=== PATIENT | male | born 1945 | race Caucasian/White ===

== ENCOUNTER 2023-05-25 09:51 | Outpatient (CLI) | payer MEDICARE, BC, SELFPAY ==
--- NOTE | 2023-05-25 10:15 | MR_ITS ---
[address] [address] Phone:?[phone] Fax:?[phone] Referring Physician Information: Aurelio Urbina M.D. [address] [place] [address] Phone:?[phone] Fax:?[phone] Patient:Rudi Zamora D.O.B:?1945 Sex:?Male Phone:?[phone] [facility] MRN:?[id number] Exam Date:?05/25/2023 EXAM: MRI of the LEFT SHOULDER, without contrast CLINICAL HISTORY: Left shoulder pain. Evaluate for rotator cuff tear. COMPARISONS: Plain radiographs 04/18/2023. TECHNICAL: MRI sequences of the left shoulder: Axials: PD, T2 Coronals: PD, STIR, T2 Sagittals: PD, T2?SEDATION: None CONTRAST: None FINDINGS: Bones: No fracture or suspicious bone marrow signal abnormality. Coracoacromial arch: Acromion: No os acromiale. Type I-II acromion. Acromiohumeral space: Marked narrowing. Acromioclavicular joint: Marked degenerative changes with marked inferior osteophytosis/hypertrophy. Coracoclavicular ligament: The coracoclavicular ligament is intact. Rotator cuff muscles/tendons: Supraspinatus and infraspinatus: There are complete full-thickness tears of the supraspinatus and infraspinatus tendon insertions with proximal/medial tendon retraction to the level of the glenoid and superior subluxation of the humeral head. No disproportionate atrophy of the supraspinatus or infraspinatus muscles in the setting of minimal diffuse muscular atrophy. Teres minor: The teres minor tendon and muscle are intact. Subscapularis: Moderate to marked tendinopathy. No disproportionate muscular atrophy. Labrum and glenohumeral joint: There is posterosuperior labral fraying. Moderate glenohumeral joint effusion. No discrete chondral defect is seen although grade 2-3 chondral thinning is suspected over much of the humeral head. No convincing evidence of capsular edema or thickening although evaluation is suboptimal because of lack of joint distention. Proximal biceps tendon, long head and short heads: There is medial dislocation of the proximal long head of the biceps tendon from the bicipital groove onto the lesser tuberosity. The short is intact. IMPRESSION: 1. Complete full-thickness tears of the supraspinatus and infraspinatus tendon insertions with proximal/medial tendon retraction to the level of the glenoid and superior subluxation of the humeral head. 2. Moderate to marked subscapularis tendinopathy. 3. No disproportionate rotator cuff muscular atrophy in the setting of minimal diffuse muscular atrophy. 4. Medial dislocation of the proximal long head the biceps tendon from the bicipital groove onto the lesser tuberosity. 5. Marked acromioclavicular joint osteoarthritis with marked inferior osteophytosis/hypertrophy. 6. No discrete chondral defect is seen although grade 2-3 chondral thinning is suspected over much of the humeral head. Posterosuperior labral fraying. 7. Moderate glenohumeral joint effusion. RCB Electronically signed on 05/25/2023 1:41:00 PM by Candido Valdes M.D.
== END 2023-05-25 09:52 | disposition home or self-care (01) ==
PROVIDERS: PCP Family Medicine; Visit Provider Orthopaedic Surgery
DX: M25.512 Pain in left shoulder (principal); M75.122 Complete rotator cuff tear or rupture of left shoulder, not specified as traumatic; M19.012 Primary osteoarthritis, left shoulder; M25.412 Effusion, left shoulder
CPT/HCPCS: 73221

== ENCOUNTER 2023-08-24 14:18 | Outpatient (RCR) | payer MEDICARE, BC, SELFPAY ==
--- NOTE | 2023-08-24 16:02 | OT.OPGNE2 ---
OT Outpatient General/Neuro Eval OT Outpatient General/Neuro Eval* Start: 08/24/23 15:22 Freq: Status: Active Protocol: Document 08/24/23 15:30 SMW (Rec: 08/24/23 15:50 SMW Laptop) E-signed By Radha Brothers OT OT Outpatient Evaluation Details Type Type Eval Complexity Low Insurance Information Insurance Information Insurance Information Medicare B Outpatient History/Precautions Current Condition Referring Provider Dr. Urbina Medical Diagnoses L reverse shoulder arthroplasty (08/29) Treatment Diagnoses L TSA Medical/Functional History Medical History Reviewed Yes Prior Level of Function/Mobility Patient lives with his in a rambler style home. Reports independence in all ADLs and IADLs. He is R handed. 1st joint replacement. PMX: Rotator cuff tear, osteoarthritis, and bicipital tendinitis of L shoulder. Precautions General Precautions TSA precautions Social History Type of Dwelling Rambler Home Number of Floors (Floors) 1 Number of Stairs to Enter (Stairs) 1 Lives With: Spouse Employment Status Retired Patient Subjective Subjective Patient Subjective Patient reports that he feels prepared for his surgery. Pain Assessment Pain Left Shoulder Pain Description Other Constant Cognitive Assessments Performed Oriented Patient oriented Person,Place,Time,Situation Balance Assessment Comments Balance Comments No AE use at baseline. ADL/IADL ADL Eating (Feeding) Ability Independent Grooming Ability Independent Oral Care Ability Independent Upper Body Dressing Ability Independent Lower Body Dressing Ability Independent Toileting Ability Independent Bathing Ability Independent Ambulation Ability Independent Assessment Assessment Assessment Tray is a 77 year old male who will be getting surgery for a left shoulder arthroplasty on 08/29/23. He was seen at the [facility] OT clinic for his pre-op visit. The patient lives in a rambler style home with his . She will be available to assist post-op.Today, the client was provided education on post-op precautions, therapeutic exercises, one handed dressing techniques, sleep positioning , and practice with donning/ doffing a sling. Patient and spouse asked appropriate questions during pre-op session. Occupational Therapy Treatment Plan - OP Potential Rehabilitation Potential Good Set Goals Goals Set with Patient Yes Goals Goals At the end of the OT session: 1. The client will verbalize understanding of post-op TSA precautions. goal met 2. The client will I demonstrate the ability to perform post-op exercises. goal met 3. The client will be educated on one handed ADL techniques, positioning, sling management and icing post surgery. goal met Treatment Plan Treatment Plan Self-Care/Home Management, Education Certification Certification Statement I Certify That: Therapy Services Provided, Therapy Plan Established, Therapy Plan Reviewed Certification Information Clinic ID # [id number] Initial Certification Date 08/24/23 Recertification Due Date 08/24/23 Provider Signature Shows Agreement With POC & Medical Necessity Physician Comment/Change Comment or Changes Physician NPI Number # Student Supervision Student Supervision Patient Treatment Provided by Student Yes with Supervision Student Documentation Reviewed Yes Student Signature Stacy Moran, OTS
== END 2023-12-22 23:59 | disposition home or self-care (01) ==
PROVIDERS: PCP Family Medicine; Visit Provider Orthopaedic Surgery
DX: M75.102 Unspecified rotator cuff tear or rupture of left shoulder, not specified as traumatic (principal); Z51.89 Encounter for other specified aftercare; M19.012 Primary osteoarthritis, left shoulder; M75.22 Bicipital tendinitis, left shoulder
CPT/HCPCS: 97110; 97165; 97535; X5282

== ENCOUNTER 2023-08-29 08:46 | Day surgery (SDC) | payer MEDICARE, BC, SELFPAY ==
[2023-08-29] VITALS (21 sets, daily range): BP systolic 114–183; BP diastolic 46–75; PULSE 60–93; RESP 14–18; TEMP 36–36.8; O2SAT 90–99; BMI 22.1
--- OUTSIDE RECORDS SUMMARY | 2023-08-29 08:49 | XMS_ITS | Continuity of Care Document ---
Author Name Unknown Address [address] [place] [address] Phone [phone] Organization [facility] Address [address] [place] [address] Care Team Providers Care Athletic Gear Custodian Name Role Phone EVANGELISTA VENTURA Primary Care Provider Assessment No assessment recorded. Plan of Treatment Reminders Order Date Submit Date Provider Last Modified By Organization Details Last Modified Time Details Appointments PSA 10 2023 10:00A M [facility] Not available Not available Not available ESTABLISH ED 10 2023 10:20A M Archie Mei MD Not available Not available Not available Lab urinalysi s, dipstick 2023 024 [email or web address] [facility], [address], [place], [address], 08/21/2023 11:20:19 PSA, serum or plasma 2023 024 [email or web address] [facility], [address], [place], [address], 08/21/2023 11:22:22 Referral None recorded. Procedures None recorded. Surgeries None recorded. Imaging None recorded. Medication Orders None recorded. Patient TargetsNo targets recorded. Patient Instructions Encounter Date Encounter Id Patient Instructions Last Modified By Organization Details Last Modified Time 08/21/2023 [id number] labs looking goo d today. will plan follow up in February for PSA and med refill. [email or web address] Not available 08/21/2023 11:35:27 Reason for Referral None Reported. Results Created Date Observation Date Name Description Value Unit Range Abnormal Flag LastModifiedBy Organization Detail LastModifiedTime 08/21/19 24 08/21/2023 PSA, serum or plasm a PSA 2.6ng/ mL 0-4.0 Not Available [facility] [address], [place], [address], 08/21/2023 11:21:43 08/21/19 24 08/21/2023 urina lysis , dipst ick Color-Status Yellow Not Available [facility] [address], [place], [address], 08/21/2023 11:19:35 08/21/19 24 08/21/2023 urina lysis , dipst ick Clarity-Stat us Clear Not Available [facility] [address], [place], [address], 08/21/2023 11:19:35 08/21/19 24 08/21/2023 urina lysis , dipst ick Sp [place]-Stat us >=1.03 0 Not Available [facility] [address], [place], [address], 08/21/2023 11:19:35 08/21/19 24 08/21/2023 urina lysis , dipst ick pH-Status 6.0 Not Available [facility] [address], [place], [address], 08/21/2023 11:19:35 08/21/19 24 08/21/2023 urina lysis , dipst ick Nitrates-Sta tus negati ve Not Available [facility] [address], [place], [address], 08/21/2023 11:19:35 08/21/19 24 08/21/2023 urina lysis , dipst ick Blood-Status Negati ve Not Available [facility] [address], [place], [address], 08/21/2023 11:19:35 08/21/19 24 08/21/2023 urina lysis , dipst ick Leuko-Status Negati ve Not Available [facility] [address], [place], [address], 08/21/2023 11:19:35 08/21/19 24 08/21/2023 urina lysis , dipst ick Specimen Type Voided Not Available [facility] [address], [place], [address], 08/21/2023 11:19:35 08/21/19 24 08/21/2023 urina lysis , dipst ick Performed by Willian Cesar RN Not Available [facility] [address], [place], [address], 08/21/2023 11:19:35 Result Notes None recorded. Problems Name Status Onset Date Resolution Date Notes Provider Name and Address Organization Details Recorded Time Zach hematuria Active 012 599.71 : GROSS HEMATURIA Not Available [facility] 12/26/2019 02:00:50 Kidney stone Active 012 592.0 : CALCULUS-KI DNEY Not Available [facility] 12/26/2019 02:00:50 Prostate specific antigen above reference range Active 022 Archie Mei MD [address] [place] [address],[address], [address], [facility] 03/10/2022 11:35:16 Lower urinary tract symptoms due to benign prostatic hypertrophy Active 023 Archie Mei MD [address] [place] [address],[address], [address], [facility] 03/03/2023 11:16:28 Problem Notes None recorded. Procedures Surgical History Date Name Laterality Status Provider Name and Address Organization Details Recorded Time 08/21/19 24 Urinalysis completed Archie Mei MD [address] [place] [address],[address], [address], [facility] 08/21/2023 11:19:24 03/03/20 23 Cystoscopy- male completed Archie Mei MD [address], [place], [address], [facility] 03/03/2023 11:16:05 01/20/20 23 Bladder [email or web address] 01/19/2023 09:36:48 03/10/20 22 Bladder Scan completed Archie Mei MD [address] [place] [address],[address], [place], [address], [facility] 03/10/2022 11:23:15 03/21/20 14 Cysto/uretero w/lithotripsy completed Not Available [facility] 12/19/2019 19:02:17 06/25/20 13 Cystouretero w/lithotripsy completed Not Available [facility] 12/19/2019 19:02:17 Hernia Repair completed Archie mauro MD [address] [place] [address],[address], [place], [address], [facility] 03/10/2022 11:22:51 Imaging Results None recorded. Procedure Notes None recorded. Medical Equipment None Reported. Allergies No known drug allergies Medications Name Sig Start Date Stop Date Status Note LastModified by Organization Details LastModified Time donepezil 10 mg tablet TAKE 2 TABLETS BY MOUTH AT BEDTIME active Not Available Not Available No t Available prednisone 20 mg tablet TAKE 2 TABLETS BY MOUTH ONCE DAILY WITH A MEAL FOR 5 DAYS 08/21 completed Not Available Not Available Not Available triamcinolo ne acetonide 0.1 % topical cream active Not Available Not Available Not Available tamsulosin 0.4 mg capsule TAKE 1 CAPSULE BY MOUTH ONCE DAILY IN THE EVENING active Not Available Not Available No t Available imiquimod 5 % topical cream packet APPLY THIN LAYER TO SCALP AND FACE 2 TIMES WEEKLY WEEKLY FOR 16 WEEKS 01/19 completed Not Available Not Available Not Available benzonatate 100 mg capsule 01/19 completed Not Available Not Available Not Available erythromyci n 5 mg/gram (0.5 %) eye ointment APPLY 1/4 INCH RIBBON TO OUTSIDE EDGE OF UPPER EYELID WHILE THE EYE IS CLOSED BEFORE BED EACH NIGHT FOR 1 MONTH 01/19 completed Not Available Not Available Not Available gabapentin 300 mg capsule active Not Available Not Available Not Available mupirocin 2 % topical ointment APPLY OINTMENT TOPICALLY TO AFFECTED AREA THREE TIMES DAILY FOR 5 DAYS active Not Available Not Available No t Available methylpredn isolone 4 mg tablets in a dose pack FOLLOW PACKAGE DIRECTION S 03/03 completed Not Available Not Available Not Available finasteride 5 mg tablet TAKE 1 TABLET BY MOUTH ONCE DAILY active Not Available Not Available No t Available rosuvastati n 20 mg tablet TAKE 1 TABLET BY MOUTH AT BEDTIME active Not Available Not Available No t Available memantine 5 mg tablet TAKE 2 TABLETS BY MOUTH ONCE DAILY active Not Available Not Available No t Available Multi Vitamin active Not Available Not Available Not Available aspirin 81 mg capsule Take 1 capsule every day by oral route. active Not Available Not Available No t Available Vitals Date Recorded Body height Provider Name an d Address Organization Details Last Updated DateTime 08/21/2023 170.18 cm Archie Mei MD [address] [place] [address], [address], [facility] 08/21/2023 11:15:57 Social History Question Answer Notes LastModified by Organizat ion Details LastModified Time Tobacco Smoking Status Former Smoker Archie Mei MD [address] [place] [address], [address], [facility] 08/21/2023 11:19:08 What Is Your Level Of Alcohol Consumption? Moderate [email or web address] Information not available 01/19/2023 How Many Times Per Week Do You Consume Alcohol? 5-7 Times Per Week [email or web address] Information not available 08/21/2023 What Is Your Level Of Caffeine Consumption? Occasional [email or web address] Information not available 03/10/2022 Are You Currently Employed? No [email or web address] Information not available 03/03/2023 When Did You Quit Smoking? 16+yearssincel astcigarette [email or web address] Information not available 08/21/2023 Recreational Drug Use No [email or web address] Information not available 03/03/2023 What Was The Date Of Your Most Recent Tobacco Screening? 08/21/2023 [email or web address] Information not available 08/21/2023 Have You Ever Been Counseled For Unhealthy Alcohol Use? No [email or web address] Information not available 01/19/2023 What Is Your Relationship Status? [email or web address] Information not available 03/03/2023 Do You Use Any Illicit Or Recreational Drugs? No [email or web address] Information not available 01/19/2023 Has Tobacco Cessation Counseling Been Provided? No [email or web address] Information not available 01/19/2023 Do You Or Have You Ever Used Any Other Forms Of Tobacco Or Nicotine? No [email or web address] Information not available 01/19/2023 Sex: Male Functional Status None recorded. Mental Status None recorded. Family History Relationship Description Onset Age of this Age Resolved Age Notes Father Family history of ca rdiac disorder Medical History Condition Response Sexually Transmitted Infection N Diabetes N Other N Bleeding Disorder N High Blood Pressure N Kidney Stones Y High Cholesterol N GERD/Acid Reflux N Heart Disease N Cancer N Lung Disease N Depression N Immunizations Vaccine Type Date Status Provider Name and Address Organization Details Recorded Time zoster recombinant 08/03/2020 completed November, [facility] 01/19/2023 09:20:34 zoster recombinant 11/14/2020 completed November, [facility] 01/19/2023 09:20:34 Influenza vaccine, quadrivalent, adjuvanted 03/23/2020 completed November, [facility] 01/19/2023 09:20:34 COVID-19, mRNA, LNP-S, PF, 30 mcg/0.3 mL dose [facility]:20:[facility] COVID-19, mRNA, LNP-S, PF, 30 mcg/0.3 mL dose 09/19/2020 completed November, [facility] 01/19/2023 09:20:34 COVID-19, mRNA, LNP-S, PF, 30 mcg/0.3 mL dose 05/20/2021 completed November, [facility] 01/19/2023 09:20:34 pneumococcal polysaccharide PPV23 11/30/2009 completed November, [facility] 01/19/2023 09:20:34 Tdap 01/24/2017 completed November, [facility] 01/19/2023 09:20:34 Pneumococcal conjugate PCV 13 04/28/2015 completed November, [facility] 01/19/2023 09:20:34 Influenza, seasonal, injectable 05/06/2008 completed Katelyn November null, [facility] 01/19/2023 09:20:34 Influenza, seasonal, injectable 06/11/2010 completed Katelyn November null, [facility] 01/19/2023 09:20:34 Hep B, adult 10/16/2013 completed Katelyn November null, [facility] 01/19/2023 09:20:34 Hep B, adult 03/28/2013 completed Katelyn November null, [facility] 01/19/2023 09:20:34 Hep B, adult 06/04/2013 completed Katelyn November null, [facility] 01/19/2023 09:20:34 Hep A, adult 04/27/2004 completed Katelyn November null, [facility] 01/19/2023 09:20:34 Past Encounters Encounter ID Performer Location Encounter Start Date Encounter Closed Date Diagnosis/Indication [id number] Archie Mei MD [facility] [address] [place] [address] 08/21/2023 10:53:40 08/28/2023 11:57:09 Prostate specific antigen above reference range Health Concerns Section Related Observation LastModified by Organization Detai ls LastModified Time None Recorded Concern Status LastModified by Organization Details LastModified Time None Recorded Payers Encounter Date Sequence Insurance Name Policy Number Policy Wick Covered Member ID Wick Member ID Guarantor Name 08/21/2023 1 [employer] [employer]UE - MEDICARE COST [id number] Tray Zamora [id number] Tray Zamora Notes Date Note Type Note Provider Name and Address Organization Details Recorded Time 08/21/2023 text/html HPI Notes: 6 mon th follow up, not seeing any blood in urine. taking finasteride and tamsulosin daily and voiding well PSA 2.6 and UA clear today. Archie Mei MD [address],[facility] [address], [place], [address], [facility] 08/21/2023 11:37:39
--- OUTSIDE RECORDS SUMMARY | 2023-08-29 08:49 | XMS_ITS | Data Portability ---
Author Name Unknown Address [address] [place] [address] Phone [phone] Organization [facility], [facility] Address 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, [place], [address], 08/21/2023 11:20:19 PSA, serum or plasma 2023 024 [email or web address] [facility], [address], [place], [address], 08/21/2023 11:22:22 urinalysi s, dipstick 2021 022 HAROLD [facility], [address], [address], [place], [address], 03/11/2022 16:14:32 Referral None recorded. Procedures bladder scan (PROC) 2022 023 [email or web address] [facility], [address], [address], [place], [address], 01/19/2023 09:37:02 bladder scan (PROC) 2021 022 [facility], [address], [address], [place], [address], 03/11/2022 16:15:36 Surgeries None recorded. Imaging None recorded. Medication Orders finasteri de 5 mg tablet 2022 023 [facility], [address] [place] [address], [address], 03/03/2023 11:17:01 tamsulosi n 0.4 mg capsule 2022 023 [facility] 1657, [address] [place] [address], [id number], 03/03/2023 11:20:39 Patient TargetsNo targets recorded. Patient Instructions Encounter Date Encounter Id Patient Instructions Last Modified By Organization Details Last Modified Time 08/21/2023 [id number] labs looking goo d today. will plan follow up in February for PSA and med refill. [email or web address] Not available 08/21/2023 11:35:27 03/03/2023 [id number] will start on finasteride, continue tamsulosin and plan rtc 6 months with PSA. [email or web address] Not available 03/03/2023 11:17:18 01/19/2023 [id number] will set up for CT urogram and get PSA done at home and then call with report and plan for cysto. [email or web address] Not available 01/19/2023 09:51:59 03/10/2022 [id number] will recheck PSA today and set up for MRI prostate. [email or web address] Not available 03/10/2022 11:39:33 Reason for Referral None Reported. Results Created Date Observation Date Name Description Value Unit Range Abnormal Flag LastModifiedBy Organization Detail LastModifiedTime 03/10/20 22 03/10/2022 bladd er scan (PROC ) Volume (in mL) 0 Not Available [facility] [address], [place], [address], 03/10/2022 11:38:11 03/11/20 22 03/11/2022 urina lysis , dipst ick pH-Status 6.0 Not Available [address], [place], [address], 03/10/2022 11:23:19 01/20/20 23 01/19/2023 bladd er scan (PROC ) Volume (in mL) 1 Not Available [address], [place], [address], 01/19/2023 09:26:03 08/21/19 24 08/21/2023 PSA, serum or plasm a PSA 2.6ng/ mL 0-4.0 Not Available [facility] [facility] [address], [place], [address], 08/21/2023 11:21:43 08/21/19 24 08/21/2023 urina lysis , dipst ick Color-Status Yellow Not Available [facility] [address], [place], [address], 08/21/2023 11:19:35 08/21/19 24 08/21/2023 urina lysis , dipst ick Clarity-Stat us Clear Not Available [facility] [address], [place], [address], 08/21/2023 11:19:35 08/21/19 24 08/21/2023 urina lysis , dipst ick Sp [place]-Stat us >=1.03 0 Not Available [facility] [facility] [address], [place], [address], 08/21/2023 11:19:35 08/21/19 24 08/21/2023 urina lysis , dipst ick pH-Status 6.0 Not Available [facility] [address], [place], [address], 08/21/2023 11:19:35 08/21/19 24 08/21/2023 urina lysis , dipst ick Nitrates-Sta tus negati ve Not Available [facility] [address], [place], [address], 08/21/2023 11:19:35 08/21/19 24 08/21/2023 urina lysis , dipst ick Blood-Status Negati ve Not Available [facility] [address], [place], [address], 08/21/2023 11:19:35 08/21/19 24 08/21/2023 urina lysis , dipst ick Leuko-Status Negati ve Not Available [facility] [address], [place], [address], 08/21/2023 11:19:35 08/21/19 24 08/21/2023 urina lysis , dipst ick Specimen Type Voided Not Available [facility] [address], [place], [address], 08/21/2023 11:19:35 08/21/19 24 08/21/2023 urina lysis , dipst ick Performed by Willian Cesar RN Not Available [facility] [address], [place], [address], 08/21/2023 11:19:35 03/10/20 22 03/10/2022 bladd er scan (PROC ) No observ ation record ed. BARCODE Not Available 03/10/2022 12:20:49 04/11/20 22 04/08/2022 MRI, prost ate, w/wo contr ast No observ ation record ed. [email or web address] [facility] [address] [facility] [place], [address], 03/09/2023 12:43:02 01/31/20 23 01/30/2023 CT, urogr am No observ ation record ed. [facility] (Radiology) [address] [place], [address], 02/02/2023 14:04:12 02/23/20 23 01/30/2023 CT, urogr am No observ ation record ed. [address] (Radiology) [address] [place], [address], 03/09/2023 12:42:40 Result Notes None recorded. Problems Name Status Onset Date Resolution Date Notes Provider Name and Address Organization Details Recorded Time Zach hematuria Active 012 599.71 : GROSS HEMATURIA Not Available [facility] 12/26/2019 02:00:50 Kidney stone Active 012 592.0 : CALCULUS-KI DNEY Not Available [facility] 12/26/2019 02:00:50 Prostate specific antigen above reference range Active 022 Archie Mei MD [address] [place] [address],[address], [address], [facility] 03/10/2022 11:35:16 Lower urinary tract symptoms due to benign prostatic hypertrophy Active 023 Archie Mei MD [address] [place] [address],[address], [address], [facility] 03/03/2023 11:16:28 Problem Notes None recorded. Procedures Surgical History Date Name Laterality Status Provider Name and Address Organization Details Recorded Time 08/21/19 24 Urinalysis completed Archie Mei MD [address] [place] [address],[address], [address], [facility] 08/21/2023 11:19:24 03/03/20 23 Cystoscopy- male completed Archie Mei MD [address] [place] [address],[address], [place], [address], [facility] 03/03/2023 11:16:05 01/20/20 23 Bladder Scan completed Katelyn Nubia briceño [facility] 01/19/2023 09:36:48 03/10/20 22 Bladder Scan completed Archie Mei MD [address], [place], [address], [facility] 03/10/2022 11:23:15 03/21/20 14 Cysto/uretero w/lithotripsy completed Not Available [facility] 12/19/2019 19:02:17 06/25/20 13 Cystouretero w/lithotripsy completed Not Available [facility] 12/19/2019 19:02:17 Hernia Repair completed Archie mauro MD [address], [place], [address], [facility] 03/10/2022 11:22:51 Imaging Results Imaging Date Name Status LastModified by Organiz ation Details LastModified Time 03/10/2022 bladder scan (PROC) completed [facility] Information not available 03/10/2022 12:20:49 04/08/2022 MRI, prostate, w/wo contrast completed [address] [facility] [place], [address], 03/09/2023 12:43:02 01/30/2023 CT, urogram completed [facility] (Radiology) [address] [place], [address], 02/02/2023 14:04:12 01/30/2023 CT, urogram completed [address] (Radiology) [address] [place], [address], 03/09/2023 12:42:40 Procedure Notes None recorded. Medical Equipment None [...] t Available Vitals Date Recorded Body height Body mass index (BMI) Body weight Provider Name and Address Organization Details Last Updated DateTime 03/10/2022 170.18 cm 20.4 kg/m2 69546.01 g Archie Mei MD [address], [place], [address], [place] [facility] 03/10/2022 11:20:00 Date Recorded Body height Body mass index (BMI) Body weight Provider Name and Address Organization Details Last Updated DateTime 01/19/2023 170.18 cm 20.4 kg/m2 10447.01 g Katelyn briceño [place] [facility] 01/19/2023 09:20:27 Date Recorded Body height Body mass index (BMI) Body weight Provider Name and Address Organization Details Last Updated DateTime 03/03/2023 170.18 cm 20.4 kg/m2 42355.01 g Toma Tian briceño [facility] 03/03/2023 10:45:24 Date Recorded Body height Provider Name an d Address Organization Details Last Updated DateTime 08/21/2023 170.18 cm Archie Mei MD [address] [place] [address], [address] 08/21/2023 11:15:57 Social History Question Answer Notes LastModified by Organizat ion Details LastModified Time Tobacco Smoking Status Former Smoker Archie Mei MD [address] [place] [address], [address], [facility] 08/21/2023 11:19:08 What Is Your Level Of Alcohol Consumption? Moderate [email or web address] Information not available 01/19/2023 How Many Times Per Week Do You Consume Alcohol? 5-7 Times Per Week [email or web address] Information not available 08/21/2023 What Is Your Level Of Caffeine Consumption? Occasional [email or web address] Information not available 03/10/2022 Are You Currently Employed? No [email or web address] Information not available 03/03/2023 When Did You Quit Smoking? 16+yearssincel astcigarette [email or web address] Information not available 08/21/2023 Recreational Drug Use No [email or web address] Information not available 03/03/2023 What Was The Date Of Your Most Recent Tobacco Screening? 08/21/2023 [email or web address] Information not available 08/21/2023 Have You Ever Been Counseled For Unhealthy Alcohol Use? No [email or web address] Information not available 01/19/2023 What Is Your Relationship Status? [email or web address] Information not available 03/03/2023 Do You Use Any Illicit Or Recreational Drugs? No [email or web address] Information not available 01/19/2023 Has Tobacco Cessation Counseling Been Provided? No [email or web address] Information not available 01/19/2023 Do You Or Have You Ever Used Any Other Forms Of Tobacco Or Nicotine? No [email or web address] Information not available 01/19/2023 Sex: Male Functional Status None recorded. Mental Status None recorded. Family History Relationship Description Onset Age of this Age Resolved Age Notes Father Family history of ca rdiac disorder Medical History Condition Response Diabetes N Sexually Transmitted Infection N Other N Bleeding Disorder N High Blood Pressure N Kidney Stones Y High Cholesterol N GERD/Acid Reflux N Heart Disease N Cancer N Lung Disease N Depression N Immunizations Vaccine Type Date Status Provider Name and Address Organization Details Recorded Time zoster recombinant 08/03/2020 completed November null, [facility] 01/19/2023 09:20:34 zoster recombinant 11/14/2020 completed November null, [facility] 01/19/2023 09:20:34 Influenza vaccine, quadrivalent, adjuvanted 03/23/2020 completed November null, [facility] 01/19/2023 09:20:34 COVID-19, mRNA, LNP-S, PF, 30 mcg/0.3 mL dose 08/29/2020 completed November null, [facility] 01/19/2023 09:20:34 COVID-19, mRNA, LNP-S, PF, 30 mcg/0.3 mL dose 09/19/2020 completed November null, [facility] 01/19/2023 09:20:34 COVID-19, mRNA, LNP-S, PF, 30 mcg/0.3 mL dose 05/20/2021 completed November null, [facility] 01/19/2023 09:20:34 pneumococcal polysaccharide PPV23 11/30/2009 completed November null, [facility] 01/19/2023 09:20:34 Tdap 01/24/2017 completed November null, [facility] 01/19/2023 09:20:34 Pneumococcal conjugate PCV 13 04/28/2015 completed November null, [facility] 01/19/2023 09:20:34 Influenza, seasonal, injectable 05/06/2008 completed November null, [facility] 01/19/2023 09:20:34 Influenza, seasonal, injectable 06/11/2010 completed November null, [facility] 01/19/2023 09:20:34 Hep B, adult 10/16/2013 completed November null, [facility] 01/19/2023 09:20:34 Hep B, adult 03/28/2013 completed Katelyn November keyanna, [facility] 01/19/2023 09:20:34 Hep B, adult 06/04/2013 completed Katelyn November keyanna, [facility] 01/19/2023 09:20:34 Hep A, adult 04/27/2004 completed Katelyn November keyanna, [facility] 01/19/2023 09:20:34 Past Encounters Encounter ID Performer Location Encounter Start Date Encounter Closed Date Diagnosis/Indication [id number] Archie Mei MD _[facility] [address] [place] [address] 03/10/2022 10:47:33 03/15/2022 16:31:05 Prostate specific antigen above reference range [id number] Archie Mei MD _[facility] [address] [place] [address] 01/19/2023 09:06:06 01/26/2023 09:16:39 Prostate specific antigen above reference range Zach hematuria [id number] Archie Mei MD [facility] [address] [place] [address] 03/03/2023 10:26:53 03/10/2023 14:24:57 Prostate specific antigen above reference range Lower urinary tract symptoms due to benign prostatic hypertrophy Zach hematuria [id number] Archie Mei MD [facility] [address] [place] [address] 08/21/2023 10:53:40 08/28/2023 11:57:09 Prostate specific antigen above reference range Health Concerns Section Related Observation LastModified by Organization Detai ls LastModified Time None Recorded Concern Status LastModified by Organization Details LastModified Time None Recorded Advance Directives Directive None Recorded Payers Encounter Date Sequence Insurance Name Policy Number Policy Wick Covered Member ID Wick Member ID Guarantor Name 08/21/2023 1 [place] [id number] Tray Reggie Cake [id number] Tray I Cake 03/03/2023 1 [place] [id number] Tray I Cake [id number] Tray I Cake 01/19/2023 1 [place] [facility] [employer] [facility] [id number] Tray I Cake [id number] Tray I Cake 01/19/2023 1 [place] [id number] Tray Paredes Cake [id number] Tray Reggie Cake 03/10/2022 1 [place] [facility] [employer] [facility] [id number] Tray I Cake [id number] Tray I Cake 03/10/2022 1 [place] [id number] Tray I Cake [id number] Tray Paredes Cake Notes Date Note Type Note Provider Name and Address Organization Details Recorded Time 03/10/2022 text/html HPI Notes: sent for eval of elevated PSA. has frequency both day and night nocturia 2-3x , many times during day, stream slow. taking tamsulosin 1/day started in October and not much change after that. PSA been rising over the last decade or so, was 2.96 in 2020 and up to 4.27 in October this year. no heme/dysuria. family hx neg for CaP. notes weight loss of about 15# unintentionally, maybe decreased appetite due to donezepil. UA clear and PVR 0ml today. Archie Mei MD [address] [place] [address],[address], [address], [facility] 03/10/2022 11:59:26 01/19/2023 text/html HPI Notes: seein g for follow up elevated PSA and also had episode of gross hematuria one time about a month ago. unable to give UA today PVR scan 1ml today. had prostate MRI done after last visit and that looked OK Archie Mei MD [address] [place] [address],[address], [place], [address], [facility] 01/19/2023 09:55:01 03/03/2023 text/html HPI Notes: here for cysto today for gross hematuria, cT was OK. Archie Mei MD [address] [place] [address],[address], [place], [address], [facility] 03/03/2023 11:20:46 08/21/2023 text/html HPI Notes: 6 mon th follow up, not seeing any blood in urine. taking finasteride and tamsulosin daily and voiding well PSA 2.6 and UA clear today. Archie Mei MD [address], [place], [address], [facility] 08/21/2023 11:37:39
--- OUTSIDE RECORDS SUMMARY | 2023-08-29 08:49 | XMS_ITS | Clinical Summary ---
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 0 05/31/2004 Active MULTIVITAMIN ORAL TAB once a day ? 0 05/31/2004 Active ACCU-CHEK MULTICLIX LANCETIndications:Ty pe II or unspecified type diabetes mellitus without mention of complication, not stated as uncontrolled use as directed 102 0 10/06/2008 Active flaxseed oil 1,000 mg Cap Take 1 capsule by mouth 3 times daily. 0 10/20/2011 Active blood sugar diagnostic (ACCU-CHEK ALLEY) stripIndications:Typ e II or unspecified type diabetes mellitus without mention of complication, not stated as uncontrolled test 3 times per week at varying times 100 Each 12 09/13/2012 Active aspirin (ECOTRIN) 81 mg enteric coated tablet Take 1 tablet by mouth once daily with a meal. 0 05/02/2019 Active ibuprofen (ADVIL; MOTRIN) 800 mg tabletIndications:Ro utine general medical examination at a health care facility Take 1 tablet by mouth 3 times daily with meals. As needed. 90 tablet 0 02/12/2020 Active donepeziL (ARICEPT) 10 mg tabletIndications:Mi ld dementia (HC) Take 1 tablet by mouth at bedtime. 30 tablet 12 05/04/2020 Active cholecalciferol, Vitamin D3, 2,000 unit tablet Take 50 mcg by mouth. 0 Active donepeziL (ARICEPT) 10 mg tabletIndications:Mo derate dementia without behavioral disturbance (HC) Take 2 Tablets (20 mg) by mouth at bedtime. 180 Tablet 3 10/12/2021 Active rosuvastatin (Crestor) 20 mg tabletIndications:Mi xed hyperlipidemia Take 1 Tablet (20 mg) by mouth at bedtime. 90 Tablet 3 08/19/2022 Active donepeziL (ARICEPT) 10 mg tabletIndications:Mo derate dementia without behavioral disturbance (HC) Take 2 Tablets (20 mg) by mouth at bedtime. 180 Tablet 3 12/26/2022 Active triamcinolone (ARISTOCORT; KENALOG) 0.1 % creamIndications:Chr onic eczema Apply topically to affected area(s) three times daily. 453.6 g 2 01/30/2023 Active tamsulosin (FLOMAX) 0.4 mg capsuleIndications:B PH with urinary obstruction Take 2 Capsules (0.8 mg) by mouth once daily after a meal. 180 Capsule 2 04/19/2023 Active memantine (Namenda) 5 mg tabletIndications:De mentia, unspecified dementia severity, unspecified dementia type, unspecified whether behavioral, psychotic, or mood disturbance or anxiety (HC) Take 2 Tablets (10 mg) by mouth once daily. 180 Tablet 2 04/11/2023 01/06/2024 Active lidocaine 5 % topical patchIndications:Chr onic left shoulder pain Apply to intact skin to cover most painful area for max 12hr per 24hr period. 30 Patch 0 04/18/2023 Active gabapentin (NEURONTIN) 300 mg capsuleIndications:A cute pain of left shoulder Take 1 Capsule (300 mg) by mouth at bedtime. 90 Capsule 0 07/12/2023 Active finasteride (PROSCAR) 5 mg tablet Take 5 mg by mouth once daily. 0 05/22/2023 Active Active Problems Problem Noted Date Diagnosed Date Sensorineural hearing loss, bilateral 11/06/2009 Diabetes mellitus type II 02/16/2009 Overview: a system change updated this record. This will not affect patient care or billing. This comment can be deleted. Aortic valve disorders Other ill-defined and unknow n causes of morbidity and mortality Personal history of unspecified digestive diseas e Family history of ischemic heart disease Other and unspecified hyperlipidemia Kidney stone Encounters Date Type Department Care Team Description 08/21/[address] [place] [address] Basim Adkins MD Form 08/15/2023 Orders Only [facility] [address] [place] [address] Basim Adkins MD 1 scan: (1-Ord) 08/14/2023 08/14/2023 12:20 PM FOOD MIXER Preop Visit [facility] [address] [place] [address] Basmi Adkins MD Pre-Op Exam (Surgery on 08/29/23 Dr. Urbina Left shoulder ) 08/14/2023 Travel from Last 3 Months Immunizations Name Administration Dates Next Due Hepatitis A (Adult) 06/11/2007,04/27/2004 Hepatitis B (Adult) 10/16/2013,06/04/2013,2012 Influenza, IIV3 (Age >=3 years) 06/11/2010,05/06,06/11/2007 Influenza, Inactivated AIIV4 (Age 65+ Years) Preserv Free 03/23/2020 Pneumococcal Poly,23-Valent (Pneumovax) 12/01/19 10 Pneumococcal conj 13-Valent (Prevnar 13) 015 Td, Preservative Free (age >= 7 Years) 7 Tdap 01/24/2017 Typhoid (injectable) 06/11/2007 Zoster (Shingrix-RZV, recombinant) 11/14/2020, Family History Medical History Relation Name Comments Cancer Brother brother Heart Disease Father MA age 64 Cancer Maternal Grandmother skin ca ncer Cancer-breast Mother Relation Name Status Comments Brother Father Maternal Grandmother Mother Social History Tobacco Use Types Packs/Day Years Used Date Smoking Tobacco: Former Cigarettes 1 8 0 07/10/1961 - 07/10/1969 Smokeless Tobacco: Never Tobacco Cessation:Counseling Given: Yes Comments:Quit smokin Alcohol Use Standard Drinks/Week Comments Yes 5.8 (1 standard drink = 0.6 oz p ure alcohol) 12/19/11, occasional PHQ-2 Answer Date Recorded PHQ-2 TOTAL SCORE 0 10/12/2021 Social Connections Answer Date Recorded Frequency of Communication with Friends and Fami ly Not on file 01/07/2023 Financial Resource Strain Answer Date R ecorded Difficulty of Paying Living Expenses 3 01/03/2022 Difficulty of Paying Living Expenses Not on file 01/03/2022 Food Insecurity Answer Date Recorded Worried About Running Out of Food in the Last Ye ar 1 01/03/2022 Transportation Needs Answer Date Record ed Lack of Transportation (Medical) 1 01/03/2022 Housing Stability Answer Date Recorded Unable to Pay for Housing in the Last Year 1 01/03/2022 Sex and Gender Information Value Date Recorded Sex Assigned at Not on file Gender Identity Not on file Sexual Orientation Not on file Obstetrics History Last Filed Vital Signs Vital Sign Reading Time Taken Comments Blood Pressure 140/60 08/14/2023 12:55 PM FOOD MIXER Pulse 59 08/14/2023 12:54 PM FOOD MIXER Temperature 36.4 ??C (97.5 ??F) 08/14/2023 12:[address] Respiratory Rate 16 08/14/2023 12:54 PM FOOD MIXER Oxygen Saturation 98% 08/14/2023 12:54 PM FOOD MIXER Inhaled Oxygen Concentration - - Weight 62.1 kg (137 lb) 08/14/2023 12:54 PM FOOD MIXER Height 167.6 cm (5' 6) 08/14/2023 12:54 PM FOOD MIXER Body Mass Index 22.11 08/14/2023 12:54 PM FOOD MIXER Plan of Treatment Upcoming Encounters Date Type Department Care Team (Late st Contact Info) Description 09/06/2023 3:30 PM FOOD MIXER Office Visit [facility] [address] [place] [address] Deacon Mast MD [address] [place] [address] 11/01/2023 3:40 PM CDT Office Visit [facility] [place] [facility] [address] [place] [address] Demian Marie MD [address] [place] [address] Health Maintenance Due Date Last Done Comments Hepatitis C screening for ag e 18-79 1963 Depression screening for age 12+ 10/12/2022 10/12/2021, 03/23/2020, 10/18/2018, Additional history exists Medicare Wellness for age 65+ 10/13/2022, 03/23/2020, 10/18/2018, Additional history exists COVID-19 vaccine series ( season) 2023 05/20/2021, 09/19/2020, 08/29/2020 Influenza for age 65+ 03/10/2023 03/23/2020 , 06/11/2010, 05/06/2008, Additional history exists BMI (ht and wt on same day) for age 18+ 08/14/2024 08/14/2023, 05/18/2023, 01/30/2023, Additional history exists Tetanus booster 01/24/2027 01/24/2017, 06/11/2007 Pneumococcal series for age 65+ Completed 5, 11/30/2009 Tdap Completed 01/24/2017 Zoster (shingles) series for age 50+ Completed 11/14/2020, 08/03/2020 Goals Goal Patient Goal Type Associated Problems Recent Progress Patient-Stated? Author BLOOD PRESSURE-MAINTA INS BP LESS THAN 130/80 Blood Pressure No Jc Delaney MD BLOOD PRESSURE - MAINTAINS BP less than 140/90 Blood Pressure No Jc Delaney MD Medical Devices Implanted Type Area Attending Urologist Device Identifier Shelf Expiration Date Model / Serial / Lot Stent Prcflx [id number] Hydpls - [id number] Implanted:Qty: 1 on 06/25/2013 by Ulisses lElison MD at [facility] Left: Ureter [facility] 04/08/2016 [id number] / / [id number] Stent Prcflx [id number] Hydpls - [id number] Implanted:Qty: 1 on 03/21/2014 by David Padron MD at [facility] Left: Ureter [facility] [id number]# / / [id number] Procedures Procedure Name Priority Date/Time Associated Diagnosis Comments EKG 12 LEAD Routine 08/14/2023 12:00 AM FOOD MIXER Preop general physical exam from Last 3 Months Results * EKG 12 LEAD (08/14/2023 12:00 AM FOOD MIXER) Basim Adkins MD EKG ORD from Last 3 Months Advance Directives Documents on File Type Date Recorded Patient 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
[2023-08-29] MEDS: OXYCODONE (CR) 10 MG TAB.ER.12H PO (09:20)
[2023-08-29] MEDS: ACETAMINOPHEN 500 MG TABLET 1000 MG PO ×3 (09:20→23:23)
[2023-08-29] MEDS: CELECOXIB 200 MG CAPSULE PO (09:20)
[2023-08-29] MEDS: LACTATED RINGERS 1000 ML 1,000 ML 100 ML IV ×2 (09:30→12:37)
[2023-08-29] MEDS: SODIUM CHLORIDE 0.9 % (FLUSH) 10 ML SYRINGE IVF (09:30)
[2023-08-29] MEDS: MIDAZOLAM HCL 1 MG/ML inj IVP (10:07)
[2023-08-29] MEDS: fentaNYL 100 MCG/2 ML inj IVP (10:07)
--- NOTE | 2023-08-29 10:31 | SUR.PREOP ---
TIME?OUT:?1007 PT/RN/MDA?VERIFICATION?OF?SURGICAL?SITE,?PROCEDURE,?AND?CONSENT OBTAINED?PRIOR?TO?INVASIVE?PROCEDURE.
[2023-08-29] MEDS: CEFAZOLIN 2 GM INJ IVP (10:35)
[2023-08-29] MEDS: TRANEXAMIC ACID 100 MG/ML INJ 1000 MG IV (10:40)
--- NOTE | 2023-08-29 10:53 | W.PM.NB ---
Nerve Block Nerve Block Time Seen by Provider: 10:11 Date Seen: 08/29/23 Type of block requested by surgeon for post-operative analgesia: supraclavicular Side: left Time out performed: Yes Verification of patient name: Yes Verification of date of : Yes Site marking: site marked Name of person performing procedure: Ramin Continuous monitoring Was continuous monitoring of O2 sat, B/P, monitoring tech, recorded every 15 minutes?: Yes Procedure Checklist: sterile prep, needles and gloves Ultrasound guided. Images saved: Yes Medications given in 5ml increments after negative aspiration: Ropivicaine %: 0.5 mL: 20 Needle gauge: 22 Decadron (mg): 10 Precedex (mcg): 25 Patient tolerated procedure well: Yes Block Charges Block Charge (with Pro Fee): Brachial Plexus Use of Ultrasound Machine for Block: Yes- US Guidance/pain block
--- NOTE | 2023-08-29 10:53 | W.ANESCHARGE ---
Anesthesia Charges Start Date/Time Anesthesia Start Date: 08/29/23 Anesthesia Start Time: 10:22 Stop Date/Time Anesthesia Stop Date: 08/29/23 Anesthesia Stop Time: 12:57 Summary Extremes of Age - Over 70 or under 1: MDA
--- NOTE | 2023-08-29 10:55 | SUR.OPER ---
PATIENT QUESTIONS ANSWERED SATISFACTORILY PREOPERATIVELY. PATIENT BROUGHT TO OR #2 PER CART FOLLOWING THE BLOCK. Patient positioned supine on OR #2 bed for the intubation.? Perioperative team wrapped the right arm in a neutral position on the pt. abdomen with the drawsheet. Left arm elevated on an IV pole in a padded strap. Final approval of positioning by surgeon.
--- NOTE | 2023-08-29 12:22 | XR_ITS ---
Final Report Patient: JEFFREY LAU Facility:?[facility] Patient ID:?[id number] Site Patient ID:?[id number]. Site :?[birth year]/31/1993 Study:?XRay Extremity Left 2V SHOULDER-08/29/2023 1:09:59 PM Ordering Physician:?DR. HUYNH Final Report: INDICATION: Post operative shoulder arthroplasty TECHNIQUE: Shoulder radiograph 2 views left COMPARISON: None FINDINGS: Bone: No acute fractures or aggressive bone lesions are identified. Joint: A reverse shoulder arthroplasty is noted. The acromioclavicular joint is unremarkable. Soft tissue: Soft tissue gas is present, consistent with recent surgery. The visualized hemithorax and soft tissues are unremarkable in appearance. No radiopaque foreign bodies are seen. IMPRESSION: 1. There is an unremarkable postoperative appearance of the shoulder arthroplasty. Dictated by: Davide Estrada MD @ 08/30/2023 07:04:56 (Electronic Signature)
--- NOTE | 2023-08-29 12:30 | P.ORPRC_ITS ---
Procedure Note Date of procedure: 08/29/23 Procedure: PREOPERATIVE DIAGNOSIS: Left shoulder rotator cuff tear arthropathy POSTOPERATIVE DIAGNOSIS: Left shoulder rotator cuff tear arthropathy NAME OF OPERATION: Left upper extremity reverse shoulder arthroplasty SURGEON: Aurelio Urbina MD DYE PENETRANT TESTING TECHNICIAN: Krysten Morelos PA-C, MONIQUE Espinoza ANESTHESIA: General endotracheal ESTIMATED BLOOD LOSS: 200 mL COMPLICATIONS: None SPECIMENS: None DRAINS: None PREOPERATIVE ANTIBIOTICS: Ancef 1 grams IMPLANTS: 1. Tornier 29 mm x 30mm standard baseplate 2. 36mm standard glenosphere 3. 5B humeral stem 4. High eccentric +0 humeral tray 5. 36mm +6 polyethylene INDICATIONS: The patient is a 77-year-old with a longstanding history of severe, unrelenting left shoulder pain secondary to rotator cuff tear arthropathy. Despite appropriate nonoperative management, including activity modification, anti-inflammatories, [id number] pain medication, physical therapy, and injections they continue to have pain and disability. Operative intervention was offered. The risks, benefits and expected outcomes were discussed in detail. These included but were not limited to: Infection, bleeding, injury to blood vessel or nerve, venous thromboembolism. All questions were answered to their satisfaction. Use of an paperhanger assistant was necessary throughout the case for patient positioning and safety, soft tissue retraction, and closure. PROCEDURE: General anesthesia was administered. The patient was placed in the lazy beach chair position on the operating room table. The left upper extremity was prepped and draped in the usual sterile fashion. A standard deltopectoral incision was made. Subcutaneous dissection was taken with electrocautery to the deltopectoral interval. The cephalic vein was mobilized, lateral branches were cauterized. The vein was taken medially with the pectoralis. We bluntly entered the deltopectoral interval. We freed up the deltoid. The upper 1/3 of the insertion of the pectoralis was divided with cautery. The static retractor was placed. The clavipectoral fascia and CA ligament were divided. The circumflex vessels were controlled with electrocautery. The biceps was dissected out of the bicipital groove, was tagged with a #2 FiberWire suture and divided proximally. Two fiberWire sutures were placed in the subscapularis. The subscap was subperiosteally elevated off of the lesser tuberosity. The humeral head was delivered into the wound. The intramedullary humeral cutting guide was placed. We made the cut at the anatomic neck, in 30? of retroversion. Humeral sounds were used to assess the diameter of the canal. The broach was placed and had good rotational stability. The calcar reamer was used and the protective base plate cover was placed. Attention was then turned to the glenoid. Hohmann retractors were placed posteriorly. The labrum and biceps stump were sharply debrided. The origin of the inferior glenohumeral ligaments were subperiosteally released off of the glenoid. The drill guide was placed. The guide pin was placed in 0? of cephalic tilt. The reamer was used to bleeding bone. The central drill was used x2. The tap was used. The standard base plate was placed. This had excellent purchase. Locking screws were placed. The glenosphere was placed, the set screw was tightened. Attention then returned to the humerus. We placed a high eccentric standard base plate and standard poly. We reduced the shoulder and took it through a range of motion. It was found to be stable with appropriate soft tissue tension. Trial humeral components were removed. The biceps was tenodesed in the bicipital groove with drill holes and our previously placed FiberWire suture. We placed #2 FiberWire sutures in the lesser tuberosity for subsequent subscap repair. We assembled the humeral component on the back table. We placed it in the center of our subscapularis repair sutures and tapped it down to our humeral cut. This had excellent purchase. The shoulder was reduced and again was found to be stable with appropriate soft tissue tension. We did a 3 min dilute Betadine solution soak. We irrigated the wound with 3 L of normal saline via pulse lavage. We repaired the subscapularis to the lesser tuberosity with our previously placed FiberWire sutures. The deltopectoral interval was loosely reapproximated with an 0 Vicryl in an interrupted [id number] fashion. Subcutaneous tissues were closed with the 2-0 Vicryl and a running 3-0 Monocryl suture. The skin was sealed with glue. A dry dressing and sling were applied. Sponge and needle counts were correct x2. The patient tolerated the procedure well, there were no apparent complications. They were awakened and extubated in the operating room, taken to the postanesthesia care unit in satisfactory condition. PLAN: The patient will be mobilized with physical therapy. The sling will be used for 6 weeks postoperatively. Active range of motion in forward flexion and abduction as tolerates. No external rotation greater than 0? for 6 weeks postoperatively. They will be discharged to home once medically appropriate.
--- NOTE | 2023-08-29 12:56 | P.ANES_ITS ---
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
--- NOTE | 2023-08-29 14:54 | PM.IMCN1 ---
Date of Consult Patient: Serina Patient Consult date: 08/29/23 Requesting Physician: Orthopedics Primary Care Provider: Basim Adkins MD Consult Narrative Reason for consult: dementia, EtOH use Narrative: Tray Zamora is a 77 year old male with h/o dementia, alcohol-related pancreatitis, and aortic valve disorder who underwent an elective left reverse shoulder arthroplasty today by Dr. Urbina. His Angeli is sitting at his bedside and answered questions about his history and medications. Tray asked me repeatedly why his arm felt numb and frequently forgot any restrictions and would try to move his arm, despite the sling. His provided frequent reminders to him. He denies pain, CP, or SOB. Review of Systems Status of ROS: Reports: 6 or more systems reviewed and unremarkable except as noted in History and below PFSH COUNTS INCLUDE 234 BEDS AT THE [facility] Medical History (Updated 08/29/23 @ 15:35 by Laly Alfaro MD) Alcohol use ?Z78.9 - Other specified health status (ICD-10) Other and unspecified hyperlipidemia ?E78.5 - Hyperlipidemia, unspecified (ICD-10) Kidney stone ?N20.0 - Calculus of kidney (ICD-10) Diabetes mellitus ?E11.9 - Type 2 diabetes mellitus without complications (ICD-10) Cervical spondylosis without myelopathy ?M47.812 - Spondylosis without myelopathy or radiculopathy, cervical region (ICD-10) Aortic valve disorders ?I35.9 - Nonrheumatic aortic valve disorder, unspecified (ICD-10) Acute pancreatitis (~2002) ?K85.90 - Acute pancreatitis without necrosis or infection, unspecified (ICD-10) Surgical History (Updated 08/29/23 @ 15:35 by Laly Alfaro MD) H/O cystoscopy ?Z98.890 - Other specified postprocedural states (ICD-10) Hx of colonoscopy ?Z98.890 - Other specified postprocedural states (ICD-10) S/p reverse total shoulder arthroplasty (08/29/23) ?Z96.619 - Presence of unspecified artificial shoulder joint (ICD-10) Hx of lithotripsy ?Z98.890 - Other specified postprocedural states (ICD-10) History of abdominal surgery ?Z98.890 - Other specified postprocedural states (ICD-10) H/O hernia repair ?Z98.890 - Other specified postprocedural states (ICD-10) ?Z87.19 - Personal history of other diseases of the digestive system (ICD-10) Family History (Updated 08/29/23 @ 15:56 by Laly Alfaro MD) Father Myocardial infarction, Onset Age: 64 Mother Breast cancer Maternal Grandmother Skin cancer Brother Cancer Social History (Updated 08/29/23 @ 15:58 by Laly Alfaro MD) Narrative: -Angeli, 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 Quit smoking over 50 years ago. Smoked about 10 years, 1-1.5 packs per day. No smokeless tobacco. 10 drinks of nancie per week. No h/o withdrawal or seizure. Has not gone a day without drinking in many years. Denies recreational drug use. What is your current living situation?: I presently have a place to live In the past 12 months, utilities in danger of being shut off: no In past 12 months, lack of transportation kept you from medical appts, meetings, work, or getting things needed for daily living: no In the past 12 mos, have been you worried that your food would run out before you had money to buy more?: never true In the past 12 mos, the food you bought just didn't last and you didn't have money to buy more?: never true Smoking Status: Former smoker What tobacco products do you use: cigarettes Smoking quit date/years: >15 years ago Do you use any of these nicotine containing products: None Second hand tobacco smoke exposure: No How often do you have a drink containing alcohol: 2-4 times a month How many standard drinks containing alcohol do you have on a typical day: 1 or 2 How often do you have six or more drinks on one occasion: Never AUDIT-C Alcohol total score: 2 Non-prescribed substance use: denies use How often does anyone, including family, friends and others, physically hurt you: never How often does anyone, including family, friends and others, insult or talk down to you: never How often does anyone, including family, friends and others, threaten you with harm: never How often does anyone, including family, friends and others, scream or curse at you: never Meds Home Medications and Allergies Home Medications Medication Instructions Recorded Confirmed Type donepezil 10 mg tablet 10 mg PO QDAY 05/15/23 08/29/23 History finasteride 5 mg tablet 5 mg PO QDAY 05/15/23 08/29/23 History memantine 5 mg tablet 5 mg PO QDAY 05/15/23 08/29/23 History rosuvastatin 20 mg tablet 20 mg PO QDAY 05/15/23 08/29/23 History tamsulosin 0.4 mg capsule 0.8 mg PO DAILY 05/15/23 08/29/23 History triamcinolone acetonide 0.1 % 1 applic topical 05/15/23 06/19/23 History topical cream aspirin 81 mg tablet,delayed 81 mg PO DAILY 08/28/23 08/29/23 History release (Ecotrin Low Strength) gabapentin 300 mg capsule 300 mg PO HS 08/28/23 08/29/23 History Home Medication Comments: Takes daily meds around 4pm Allergies Allergy/AdvReac Type Severity Reaction Status Date / Time No Known Drug Allergies Allergy Verified 08/29/23 08:57 Exam Narrative: Exam Narrative: General: No acute distress. Awake alert oriented to self and place, frequently reassessed the same questions within a few minutes. HEENT: Normocephalic atraumatic, pupils equally round and reactive to light and accommodation. Oropharynx clear. Mucous membranes are moist. No cervical lymphadenopathy, thyromegaly or carotid bruits. No JVD. Cardiovascular: Regular rate and rhythm. No murmurs, gallops, or rubs. Chest: No increased work of breathing. Clear to auscultation bilaterally. No crackles or wheezes. Abdomen: Bowel sounds present. Soft, nondistended, nontender. No hepatosplenomegaly or masses. Genitourinary: Circumcised male, normal external male genitalia. Extremities: Left shoulder bandage is clean, dry, and intact. No edema, no cyanosis or clubbing. Skin: No jaundice, no pallor, no rashes. Const: Vital Signs, click to edit/add: Vital Signs - 24 hr 08/29/23 09:49 08/29/23 10:09 08/29/23 12:55 Temperature 98.1 F 97.2 F L Pulse Rate 61 61 70 Respiratory Rate 16 16 18 Blood Pressure 183/71 H 163/66 H 133/53 L Blood Pressure [Ri ght Arm] Pulse Oximetry 97 99 98 Oxygen Delivery Me thod Room Air Nasal Cannula Room Air Oxygen Flow Rate 2 08/29/23 13:00 08/29/23 13:05 08/29/23 13:10 Temperature 97.2 F L Pulse Rate 86 61 60 Respiratory Rate 17 14 17 Blood Pressure 128/61 144/63 H 136/62 Blood Pressure [Ri ght Arm] Pulse Oximetry 98 95 95 Oxygen Delivery Me thod Room Air Room Air Room Air Oxygen Flow Rate 08/29/23 13:15 08/29/23 13:20 08/29/23 13:25 Temperature 97.4 F L Pulse Rate 64 60 61 Respiratory Rate 17 18 18 Blood Pressure 136/63 132/60 141/66 H Blood Pressure [Ri ght Arm] Pulse Oximetry 98 98 98 Oxygen Delivery Me thod Room Air Room Air Room Air Oxygen Flow Rate 08/29/23 13:30 Temperature 97.1 F L Pulse Rate 62 Respiratory Rate 14 Blood Pressure Blood Pressure [Ri ght Arm] 143/63 H Pulse Oximetry 93 Oxygen Delivery Me thod Room Air Oxygen Flow Rate Assessment and Plan Assessment and plan (1) Alcohol use: Problem comment: 1-2 drinks of nancie per day, averaging 10 drinks per week. Status: Chronic (2) Arthritis of left acromioclavicular joint: Status: Acute (3) S/p reverse total shoulder arthroplasty: Status: Acute Plan 77y/o male with moderate EtOH use, h/o alcohol related pancreatitis x2, mild-moderate dementia, hyperlipidemia, aortic valve d/o underwent an elective left reverse shoulder arthroplasty. He is doing well post op. Routine post op cares. Will continue his home medications. I spoke with the patient and his about the risk for sundowning and delirium. Lyman patient frequently. Monitor for sign of withdrawal. VTE prophylaxis with TEDS, SCDs, continue daily baby aspirin. Anticipate d/c home with tomorrow.
[2023-08-29] MEDS: ROSUVASTATIN CALCIUM 10 MG TABLET 20 MG PO (16:36)
[2023-08-29] MEDS: ASPIRIN 81 MG TABLET EC PO (16:38)
[2023-08-29] MEDS: DONEPEZIL 10 MG TABLET 20 MG PO (16:38)
[2023-08-29] MEDS: MEMANTINE HCL 10 MG TABLET PO (16:38)
[2023-08-29] MEDS: CEFAZOLIN 2 GM in 0.9 % SODIUM CHLORIDE Mini-bag 100 ML IVPB (16:42)
[2023-08-29] MEDS: TAMSULOSIN HCL 0.4 MG CAPSULE 0.8 MG PO (16:49)
[2023-08-29] MEDS: GABAPENTIN 300 MG CAPSULE PO (21:00)
[2023-08-30 01:15] VITALS: BP 141/61; PULSE 63; RESP 16; TEMP 36.5; O2SAT 95
[2023-08-30] MEDS: CEFAZOLIN 2 GM in 0.9 % SODIUM CHLORIDE Mini-bag 100 ML IVPB (01:18)
[2023-08-30] MEDS: ACETAMINOPHEN 500 MG TABLET 1000 MG PO ×2 (05:17→10:10)
--- NOTE | 2023-08-30 06:35 | PC.NURSE ---
Pt alert and oriented x3.? Pt reports 2/10 pain in left shoulder, managed with scheduled medications. Pt denies SOB, chest pain, and N/V. Pt?s left shoulder dressing is CDI and left shoulder sling is in place. Pt is up SBA to bathroom, voiding, and tolerating a regular diet. Pt slept throughout most of night.??
[2023-08-30 06:44] LABS: Hematocrit 30.8 % (37.0-53.0); Hemoglobin* 10.7 gm/dL (13.5-17.5); Mean Corpuscular HGB Conc 35 gm/dL (32-36); Mean Corpuscular Hemoglobin 32 pg (26-34); Mean Corpuscular Volume 93 fL (80-100); Platelet Count* 150 K/uL (140-440); White Blood Count* 14.25 K/uL (4.50-11.00)
[2023-08-30 06:46] LABS: Slide Review Reflex No
[2023-08-30 06:58] LABS: Potassium* 3.9 mmol/L (3.6-5.1); Sodium* 136 mmol/L (135-149)
[2023-08-30 07:01] LABS: Blood Urea Nitrogen* 19 mg/dL (7-30); Creatinine* 0.8 mg/dL (0.5-1.5); Est. Creatinine Clearance* 52.61; Estimated Glomerular Filt Rate 90 ml/min
[2023-08-30 07:40] VITALS: BP 143/57; PULSE 77; RESP 18; TEMP 37.1; O2SAT 94
--- NOTE | 2023-08-30 07:41 | PM.ORPN ---
Subjective Subjective Time Seen by Provider: 07:41 Date Seen: 08/30/23 Principal diagnosis: Status post left reverse shoulder replacement Interval history: Tray is comfortable. He denies nausea vomiting. He will discharge today to home. Ortho Exam Narrative Exam Narrative: Alert and oriented x3. Patient is in no acute distress. Converses without labored breathing. Hearing is grossly intact. Ambulates with a normal gait. Examination of left upper extremity shows extensive ecchymosis. Swelling is present. Dressing is intact. No sign of infection. No erythema or warmth or drainage. He is able to extend and flex the wrist and fingers. Decreased sensation in the hand. He is able to flex and extend the elbow somewhat. No edema about the forearm or hand. No sign of DVT. Const Vital Signs, click to edit/add: Vital Signs - 24 hr 08/29/23 09:49 08/29/23 10:09 08/29/23 12:55 Temperature 98.1 F 97.2 F L Pulse Rate 61 61 70 Pulse Rate [Right Pulse Oximeter] Respiratory Rate 16 16 18 Blood Pressure 183/71 H 163/66 H 133/53 L Blood Pressure [Right Arm] Pulse Oximetry 97 99 98 Oxygen Delivery Method Room Air Nasal Cannula Room Air Oxygen Flow Rate 2 08/29/23 13:00 08/29/23 13:05 08/29/23 13:10 Temperature 97.2 F L Pulse Rate 86 61 60 Pulse Rate [Right Pulse Oximeter] Respiratory Rate 17 14 17 Blood Pressure 128/61 144/63 H 136/62 Blood Pressure [Right Arm] Pulse Oximetry 98 95 95 Oxygen Delivery Method Room Air Room Air Room Air Oxygen Flow Rate 08/29/23 13:15 08/29/23 13:20 08/29/23 13:25 Temperature 97.4 F L Pulse Rate 64 60 61 Pulse Rate [Right Pulse Oximeter] Respiratory Rate 17 18 18 Blood Pressure 136/63 132/60 141/66 H Blood Pressure [Right Arm] Pulse Oximetry 98 98 98 Oxygen Delivery Method Room Air Room Air Room Air Oxygen Flow Rate 08/29/23 13:30 08/29/23 13:45 08/29/23 14:00 Temperature 97.1 F L 97.5 F L 96.8 F L Pulse Rate 62 Pulse Rate [Right Pulse Oximeter] 76 62 Respiratory Rate 14 16 16 Blood Pressure Blood Pressure [Right Arm] 143/63 H 140/62 H 119/46 L Pulse Oximetry 93 93 90 Oxygen Delivery Method Room Air Room Air Room Air Oxygen Flow Rate 08/29/23 14:15 08/29/23 14:30 08/29/23 14:30 Temperature 96.9 F L 97.7 F 97.7 F Pulse Rate Pulse Rate [Right Pulse Oximeter] 65 60 60 Respiratory Rate 16 16 16 Blood Pressure Blood Pressure [Right Arm] 132/74 131/68 131/68 Pulse Oximetry 92 91 91 Oxygen Delivery Method Room Air Room Air Room Air Oxygen Flow Rate 08/29/23 15:00 08/29/23 15:00 08/29/23 15:30 Temperature Pulse Rate Pulse Rate [Right Pulse Oximeter] 80 63 Respiratory Rate 16 16 Blood Pressure Blood Pressure [Right Arm] 136/67 155/63 H Pulse Oximetry 92 Oxygen Delivery Method Room Air Oxygen Flow Rate 08/29/23 16:00 08/29/23 17:00 08/29/23 18:00 Temperature 97.7 F 97.8 F 96.9 F L Pulse Rate Pulse Rate [Right Pulse Oximeter] 80 82 92 Respiratory Rate 16 16 18 Blood Pressure Blood Pressure [Right Arm] 133/56 L 147/62 H 164/65 H Pulse Oximetry 95 94 95 Oxygen Delivery Method Room Air Room Air Room Air Oxygen Flow Rate 08/29/23 19:00 08/29/23 23:30 08/29/23 23:30 Temperature 98.0 F 98.3 F Pulse Rate Pulse Rate [Right Pulse Oximeter] 93 74 Respiratory Rate 18 16 16 Blood Pressure Blood Pressure [Right Arm] 151/63 H 114/75 Pulse Oximetry 95 93 Oxygen Delivery Method Room Air Room Air Oxygen Flow Rate 08/30/23 01:15 Temperature 97.7 F Pulse Rate Pulse Rate [Right Pulse Oximeter] 63 Respiratory Rate 16 Blood Pressure Blood Pressure [Right Arm] 141/61 H Pulse Oximetry 95 Oxygen Delivery Method Room Air Oxygen Flow Rate Assessment and Plan Assessment and plan (1) S/p reverse total shoulder arthroplasty: Problem details: Left 08/29/2023 Status: Acute Assessment and Plan: Tray is comfortable this morning. Plan for discharge is to home when they meet discharge criteria. Patient will wear the sling for 6 weeks post surgery. They can take it off for comfort and for exercises. Activity: no external rotation of the operative shoulder past 0? x 6 weeks. Forward flexion and abduction of the shoulder is allowed as tolerated. They will work on range of motion of the elbow, wrist, fingers once the block has wore off on the operative extremity. Patient will begin physical therapy for the operative shoulder next week. For discharge, oxycodone and Tylenol for pain. Do not drive while on narcotic pain medication. Drive only when safe to do so, when they have normal use/function of the upper extremity, this will likely take 6 weeks. Patient will minimize and discontinue the narcotic as soon as possible. Remove dressing in 1 week. Dressing is waterproof. May shower. Surgical glue covers the wound. Do not scrub the wound. Expect swelling and bruising about the shoulder and upper extremity. Use of ice/active ice without restriction. Notify Orthopedics if swelling is excessive. notify Orthopedics with any questions or concerns. [phone] Return to Orthopedic clinic next week for a wound check Return to clinic in [address] Urbina.
--- NOTE | 2023-08-30 09:37 | REH.PT ---
Per OT after their consult with Tray, PT eval is not necessary as he is mobile.
== END 2023-08-30 10:15 | disposition home or self-care (01) ==
LOC: OR 08:47 → MEDSURG 08:49
PROVIDERS: PCP Family Medicine; Visit Provider Orthopaedic Surgery
PROC: 0RRJ0JZ Replacement of Right Shoulder Joint with Synthetic Substitute, Open Approach (ICD-10-PCS; CPT 23472; principal; 2023-08-29 11:15)
DX: M75.101 Unspecified rotator cuff tear or rupture of right shoulder, not specified as traumatic (principal); M13.812 Other specified arthritis, left shoulder; G89.18 Other acute postprocedural pain; F03.B0 Unspecified dementia, moderate, without behavioral disturbance, psychotic disturbance, mood disturbance, and anxiety; E11.9 Type 2 diabetes mellitus without complications; F10.90 Alcohol use, unspecified, uncomplicated; I35.9 Nonrheumatic aortic valve disorder, unspecified
CPT/HCPCS: 23472; 01638; 36415; 64415; 73030; 76942; 82565; 82962; 84132; 84295; 84520; 85027; 97110; 97165; 97535; 99100; A9270; C1713; C1776; J0330; J0690; J1100; J2250; J2405; J2704; J2795; J3010; J3490; J7120; L3670

== ENCOUNTER 2023-09-18 14:10 | Outpatient (CLI) | payer MEDICARE, BC, SELFPAY | END 2023-09-18 14:11 | disposition home or self-care (01) | LOC: WOUND 14:10 | PROVIDERS: PCP Family Medicine; Visit Provider Nurse Practitioner Family | DX: F42.4 Excoriation (skin-picking) disorder (principal); L98.9 Disorder of the skin and subcutaneous tissue, unspecified | CPT/HCPCS: G0463 ==